=== PATIENT | male | born 1990 | race Caucasian/White ===

== ENCOUNTER → 2022-11-18 13:16 | Outpatient (CLI) | payer OTHER, SELFPAY ==
--- NOTE | 2022-11-18 13:19 | DI.MRI.S_ITS ---
PROCEDURE: MR BRAIN (PITUITARY) WWO CON INDICATIONS: Hypopituitarism TECHNIQUE: Noncontrast sagittal and axial FLAIR, axial gradient echo, axial diffusion and ADC through the brain. Thin-slice sagittal and coronal T1 spin echo, coronal T2 fast spin echo through the pituitary. After the administration contrast, optional dynamic coronal T1 spin echo, thin-slice coronal and sagittal T1 spin echo images through the pituitary fossa; axial and coronal and sagittal T1 spin echo with fat saturation through the brain. COMPARISON: None. FINDINGS: Image quality: Excellent. Pituitary Gland: The pituitary gland demonstrates normal signal and bulk. On the postcontrast imaging, no masses or abnormally enhancing areas are seen. The pituitary stalk and infundibulum have an unremarkable appearance. A normal appearing pituitary bright spot is seen posteriorly on the precontrast sagittal T1-weighted images. The optic chiasm and the ventral forebrain have an unremarkable appearance. CSF Spaces: Ventricles are normal in size and shape. Basal cisterns are patent. No extra-axial fluid collections. Brain: No intracranial bleeds or mass effects. No abnormal intracranial enhancement. [place]-white matter interface is intact. Diffusion weighted images demonstrate no acute ischemic insults. Brainstem is normal. Normal intravascular flow voids are present. Skull and face: Calvarial marrow is normal in signal. Orbits appear normal. Sinuses: Sinuses and mastoids are clear. IMPRESSION: Normal pituitary, without masses or abnormal enhancement. No imaging explanation is found for this patient's presenting symptoms. Dictated by: Madi Melara M.D. on 11/18/2022 at 13:49 Approved by: Madi Melara M.D. on 11/18/2022 at 13:50
== END ==
PROVIDERS: Referring Provider Internal Medicine; Visit Provider Internal Medicine
DX: E23.0 Hypopituitarism (principal)
CPT/HCPCS: 70553

== ENCOUNTER → 2023-11-30 13:17 | Outpatient (CLI) | payer OTHER, SELFPAY | PROVIDERS: Family Provider Preventive Medicine Aerospace Medicine; PCP Preventive Medicine Aerospace Medicine; Referring Provider Preventive Medicine Aerospace Medicine; Visit Provider Preventive Medicine Aerospace Medicine | DX: R20.2 Paresthesia of skin (principal) | CPT/HCPCS: 95885; 95886; 95913 ==

== ENCOUNTER → 2023-12-14 12:37 | Outpatient (CLI) | payer OTHER, SELFPAY ==
--- NOTE | 2023-12-14 12:39 | DI.MRI.S_ITS ---
PROCEDURE: MR CERVICAL SPINE WO CON INDICATIONS: NUMBNESS AND EVIDENCE OF LESIONS AT C6/7 TECHNIQUE: Noncontrast sagittal T1 spin echo and proton density, sagittal STIR, foraminal oblique sagittal T2 fast spin echo, and axial gradient echo or T2 fast spin echo through the cervical spine. COMPARISON: None. FINDINGS: Image quality: Excellent. Alignment and Curvature: There is overall straightening of the normal cervical lordosis. No focal AP alignment abnormality is seen. Bone Marrow: Marrow demonstrates normal overall signal. Spinal Cord: In this patient with this given history, scrutiny is given to abnormal T2 hyperintense lesions. None can be seen, including at the C6-C7 level. Visualized spinal cord has normal size and signal. No cerebellar tonsillar herniation. Paraspinous Soft Tissues: No paravertebral masses. Prevertebral soft tissues are normal in thickness. C2-C3: Normal appearance. C3-C4: The disc height and disk signal are relatively well-preserved. A mild degree of generalized disc osteophyte complex is seen. There is a mild central disc osteophyte protrusion seen. Mild facet joint hypertrophy is seen. There is at least moderate left-sided and mild right-sided neural foraminal narrowing. No central canal narrowing is seen. C4-C5: Mild loss of disc height is seen. Loss of disc signal is seen. Mild to moderate disc osteophyte complex is seen, with a central/right disc osteophyte protrusion. Uncovertebral joint hypertrophy is seen at this level. Mild to moderate facet hypertrophy can be seen. There is moderate to severe bilateral neural foraminal narrowing, left worse than right. Moderate central canal narrowing is seen. There is associated mass effect upon the ventral spinal cord. C5-C6: The disc height is well-preserved. Loss of disc signal is seen at this level. Moderate disc osteophyte complex is seen, with a central/left disc osteophyte protrusion. Uncovertebral joint hypertrophy is seen at this level. There is moderate to severe bilateral neural foraminal narrowing seen. Moderate central canal narrowing is seen. There is associated mass effect upon the ventral spinal cord. C6-C7: Mild loss of disc height is seen. Loss of disc signal is seen. Moderate disc osteophyte complex is seen, with a central/left disc extrusion, with mild inferior migration of the disc material. There is at least moderate right-sided and moderate left-sided neural foraminal narrowing. Moderate central canal narrowing is seen. Minimal mass effect can be seen upon the ventral spinal cord. C7-T1: Normal appearance. IMPRESSION: Multiple levels of significant cervical spine degenerative change can be seen, including a central/right disc extrusion at the C6-C7 level. Moderate central canal narrowing can be seen at C4-C5, C5-C6, and C6-C7, with associated mass effect upon the ventral spinal cord. Dictated by: Madi Melara M.D. on 12/14/2023 at 16:27 Approved by: Madi Melara M.D. on 12/14/2023 at 16:33
== END ==
PROVIDERS: Family Provider Preventive Medicine Aerospace Medicine; PCP Preventive Medicine Aerospace Medicine; Referring Provider Preventive Medicine Aerospace Medicine; Visit Provider Preventive Medicine Aerospace Medicine
DX: M48.02 Spinal stenosis, cervical region (principal); M47.812 Spondylosis without myelopathy or radiculopathy, cervical region; M50.223 Other cervical disc displacement at C6-C7 level; R20.2 Paresthesia of skin
CPT/HCPCS: 72141

== ENCOUNTER 2024-07-01 17:36 | Emergency (ER) | payer OTHER, SELFPAY ==
[2024-07-01 17:42] VITALS: BP 167/87; PULSE 94; RESP 20; TEMP 36.4; O2SAT 97; BMI 36.8
--- NOTE | 2024-07-01 21:25 | ED_ITS ---
HPI - Extremity Problem General Chief complaint: Extremity Problem,Nontraumatic Stated complaint: Rt arm numb, pain from neck to elbow Time Seen by Provider: 07/01/24 21:02 Mode of arrival: Ambulatory History of Present Illness HPI Narrative: 33-year-old gentleman presents with right-sided neck shoulder arm forearm pain radiating down to the all the fingertips today that is been worse than usual seen previously in the remote past for similar symptoms for which she had an MRI done of the cervical spine back in December 30. MRI at that time showed multiple levels of significant cervical spine degenerative changes including central right disc extrusion at C6-C7. Also moderate central canal narrowing seen at C4-C5 C5-6 C6-C6 C7 associated with mass effect upon the ventral spinal cord. Patient denies headache dizziness chest pain shortness of breath trauma to the area. Nothing makes it better or worse. Other than what is stated 14 point review of system is negative. Related Data Previous Rx's Medication Instructions Recorded cyclobenzaprine 10 mg tablet 10 mg PO TID PRN muscle spasm #30 07/01/24 tabs gabapentin 300 mg capsule 300 mg PO TID PRN numbness #30 caps 07/01/24 prednisone 20 mg tablet 20 mg PO DAILY #5 tabs 07/01/24 Review of Systems Review of Systems ROS Unobtainable: All systems reviewed & are unremarkable except as noted in HPI and below Patient History Smoking Status: Never smoker Exam Narrative Exam Narrative: GENERAL: [33] year old patient appears stated age. Well-developed patient, in mild distress. HEAD: Atraumatic. Normocephalic. EYES: Pupils equal round and reactive. Extraocular motions intact. No scleral icterus. No injection or drainage. NECK: Trachea midline. Non tender EXTREMITIES: No edema or joint tenderness. BACK: Nontender without deformity or crepitance. No flank tenderness. NEURO: AOx3. Motor sensory intact GCS 15 moving all his extremities with no difficulty. Full range of motion of the right upper extremity in flexion extension abduction adduction at the shoulder joint. Right forearm supination pronation flexion extension intact. Right wrist flexion-extension side abduction adduction intact. Plus two radial pulse cap refill less than 2nd motor sensory intact SKIN: No rash or erythema of visible areas Initial Vital Signs Initial Vital Signs: Vital Signs Temperature 97.5 F L 07/01/24 17:42 Pulse Rate 94 H 07/01/24 17:42 Respiratory Rate 20 07/01/24 17:42 Blood Pressure 167/87 H 07/01/24 17:42 Pulse Oximetry 97 07/01/24 17:42 Oxygen Delivery Method Room Air 07/01/24 17:42 Course Vital Signs Vital signs: Vital Signs - 8 hr 07/01/24 17:42 Temperature 97.5 F L Pulse Rate 94 H Respiratory Rate 20 Blood Pressure 167/87 H Pulse Oximetry 97 Oxygen Delivery Method Room Air MDM - Extremity (Nontraumatic) Imaging Data Extremity x-ray #1: Radiologist's Impression: [address] [address] Magnetic Resonance Report Signed Patient: Kevyn Mandujano MR#: [id number] : 1990 Acct:[id number] Age/Sex: 33 / M Date of Service: 12/14/23 Loc: MRI Accession Number: [id number] Procedure: MR cervical spine wo con Ordering Provider: Elvira Patel D.O. PROCEDURE: MR CERVICAL SPINE WO CON INDICATIONS: NUMBNESS AND EVIDENCE OF LESIONS AT C6/7 TECHNIQUE: Noncontrast sagittal T1 spin echo and proton density, sagittal STIR, foraminal oblique sagittal T2 fast spin echo, and axial gradient echo or T2 fast spin echo through the cervical spine. COMPARISON: None. FINDINGS: Image quality: Excellent. Alignment and Curvature: There is overall straightening of the normal cervical lordosis. No focal AP alignment abnormality is seen. Bone Marrow: Marrow demonstrates normal overall signal. Spinal Cord: In this patient with this given history, scrutiny is given to abnormal T2 hyperintense lesions. None can be seen, including at the C6-C7 level. Visualized spinal cord has normal size and signal. No cerebellar tonsillar herniation. Paraspinous Soft Tissues: No paravertebral masses. Prevertebral soft tissues are normal in thickness. C2-C3: Normal appearance. C3-C4: The disc height and disk signal are relatively well-preserved. A mild degree of generalized disc osteophyte complex is seen. There is a mild central disc osteophyte protrusion seen. Mild facet joint hypertrophy is seen. There is at least moderate left-sided and mild right-sided neural foraminal narrowing. No central canal narrowing is seen. C4-C5: Mild loss of disc height is seen. Loss of disc signal is seen. Mild to moderate disc osteophyte complex is seen, with a central/right disc osteophyte protrusion. Uncovertebral joint hypertrophy is seen at this level. Mild to moderate facet hypertrophy can be seen. There is moderate to severe bilateral neural foraminal narrowing, left worse than right. Moderate central canal narrowing is seen. There is associated mass effect upon the ventral spinal cord. C5-C6: The disc height is well-preserved. Loss of disc signal is seen at this level. Moderate disc osteophyte complex is seen, with a central/left disc osteophyte protrusion. Uncovertebral joint hypertrophy is seen at this level. There is moderate to severe bilateral neural foraminal narrowing seen. Moderate central canal narrowing is seen. There is associated mass effect upon the ventral spinal cord. C6-C7: Mild loss of disc height is seen. Loss of disc signal is seen. Moderate disc osteophyte complex is seen, with a central/left disc extrusion, with mild inferior migration of the disc material. There is at least moderate right-sided and moderate left-sided neural foraminal narrowing. Moderate central canal narrowing is seen. Minimal mass effect can be seen upon the ventral spinal cord. C7-T1: Normal appearance. IMPRESSION: Multiple levels of significant cervical spine degenerative change can be seen, including a central/right disc extrusion at the C6-C7 level. Moderate central canal narrowing can be seen at C4-C5, C5-C6, and C6-C7, with associated mass effect upon the ventral spinal cord. Dictated by: Madi Melara M.D. on 12/14/2023 at 16:27 Approved by: Madi Melara M.D. on 12/14/2023 at 16:33 [facility] Narrative Medical decision making narrative: Vital signs nurse triage note medication list previous ER visits and MRI all reviewed. Patient given gabapentin prednisone and cyclobenzaprine here and will be discharged on the same. Patient is part of the [employer] [place] re-evaluation. Differential diagnosis includes cervical radiculopathy osteoarthritis disc disease. Discharge Plan Departure Patient Disposition: Home Clinical Impression: Cervical disc disorder with radiculopathy Instructions: DI for Cervical Radiculopathy Activity Restrictions/Additional Instructions: Return with new or worsening symptoms. Follow up with PCP in 1-2 weeks for re- evaluation. Take your medicines directed. Prescriptions: New gabapentin 300 mg capsule 300 mg PO TID PRN (Reason: numbness) Qty: 30 0RF cyclobenzaprine 10 mg tablet 10 mg PO TID PRN (Reason: muscle spasm) Qty: 30 0RF prednisone 20 mg tablet 20 mg PO DAILY Qty: 5 0RF Referrals: Elvira Patel DO [Primary Care Provider] - Stand Alone Forms: Patient Portal/API/Survey
[2024-07-01] MEDS: GABAPENTIN 300 MG CAPSULE PO (21:34)
[2024-07-01] MEDS: CYCLOBENZAPRINE 10 MG TABLET PO (21:34)
[2024-07-01] MEDS: predniSONE 20 MG TABLET 60 MG PO (21:34)
== END 2024-07-01 21:43 | disposition home or self-care (01) ==
PROVIDERS: Emergency Provider Family Medicine; Family Provider Preventive Medicine Aerospace Medicine; PCP Preventive Medicine Aerospace Medicine
DX: M54.12 Radiculopathy, cervical region (principal); R20.0 Anesthesia of skin

== ENCOUNTER 2024-07-01 23:27 | Emergency (ER) | payer OTHER, SELFPAY ==
[2024-07-01 23:57] VITALS: BP 167/107; PULSE 76; RESP 18; TEMP 36.7; O2SAT 95; BMI 33.5
--- NOTE | 2024-07-02 00:55 | ED.NECK ---
HPI - Neck Pain/Injury General Chief Complaint: Neck Pain/Injury Stated Complaint: medication given earlier not helping Time Seen by Provider: 07/02/24 00:19 Mode of arrival: Ambulatory History of Present Illness HPI Narrative: 33-year-old gentleman seen by me earlier tonight for right shoulder neck pain radiating down to right fingertips with numbness and tingling with a known history of cervical spine degenerative changes including central right disc extrusion at C6-7 along with moderate central canal narrowing at C4-C5 as well as C5-C6 and C6-C7 associated with mass effect upon the ventral spinal cord given gabapentin prednisone and Flexeril here returns tonight a few hours later with same symptoms and no pain relief. Other than what is stated 14 point review of system is negative. Related Data Previous Rx's Medication Instructions Recorded cyclobenzaprine 10 mg tablet 10 mg PO TID PRN muscle spasm #30 07/01/24 tabs gabapentin 300 mg capsule 300 mg PO TID PRN numbness #30 caps 07/01/24 prednisone 20 mg tablet 20 mg PO DAILY #5 tabs 07/01/24 hydrocodone 5 mg-acetaminophen 325 1 tab PO Q4-6H PRN pain #20 tabs 07/02/24 mg tablet Review of Systems Review of Systems ROS Unobtainable: All systems reviewed & are unremarkable except as noted in HPI and below Patient History Social History Smoking Status: Never smoker Smoking Status: Never smoker Exam Narrative Exam Narrative: GENERAL: [33] year old patient appears stated age. Well-developed patient, in mild distress. HEAD: Atraumatic. Normocephalic. EYES: Pupils equal round and reactive. Extraocular motions intact. No scleral icterus. No injection or drainage. EXTREMITIES: No edema or joint tenderness. BACK: Nontender without deformity or crepitance. No flank tenderness. NEURO: AOx3. GCS 15 nonfocal neuro exam SKIN: No rash or erythema of visible areas Initial Vital Signs Initial Vital Signs: Vital Signs Temperature 98.0 F 07/01/24 23:57 Pulse Rate 76 07/01/24 23:57 Respiratory Rate 18 07/01/24 23:57 Blood Pressure 167/107 H 07/01/24 23:57 Pulse Oximetry 95 07/01/24 23:57 Oxygen Delivery Method Room Air 07/01/24 23:57 Course Orders Ordered: ED Orders 07/02/24 01:00 CT cervical spine wo con Stat Discontinued Medications Hydrocodone Bitart/Acetaminophen (Hydrocodone/Acet 5/325 Tablet) 1 tab PO NOW ONE Stop: 07/02/24 01:01 Last Admin: 07/02/24 01:05 Dose: 1 tab Documented By: JOSE Vital Signs Vital signs: Vital Signs - 8 hr 07/01/24 23:57 Temperature 98.0 F Pulse Rate 76 Respiratory Rate 18 Blood Pressure 167/107 H Pulse Oximetry 95 Oxygen Delivery Method Room Air MDM - Neck Pain/Injury Imaging Data CT - cervical spine: Radiologist's Impression: [place] [address] CT Scan Report Signed Patient: Kevyn Mandujano MR#: [id number] : 1990 Acct:[id number] Age/Sex: 33 / M Date of Service: 07/02/24 Loc: ED Accession Number: [id number] Procedure: CT cervical spine wo con Ordering Provider: Leoncio Rowe D.O. PROCEDURE: CT CERVICAL SPINE WO CON INDICATIONS: Neck pain radiating to R arm TECHNIQUE: Noncontrast 3 mm thick sections acquired from the skull base to the T4 level. Sagittal and coronal reformats were then constructed. For radiation dose reduction, the following was used: automated exposure control, adjustment of mA and/or kV according to patient size. COMPARISON: None. FINDINGS: Image quality: Excellent. Bones: No fractures or dislocations. Visualized superior ribs are intact. Mild disc height loss at C4-5, C5-6 and C6-7. There is a disc osteophyte complex at C5-6, causing mild bilateral neural foraminal narrowing. There is mild left-sided neural foraminal narrowing as well from uncovertebral hypertrophy. Soft tissues: Prevertebral soft tissues are normal in thickness. No paravertebral hematomas. No apical pneumothoraces. IMPRESSION: Mild bilateral neural foraminal narrowing at C5-6, due to disc osteophyte complex. Mild left neural foraminal narrowing at C4-5 due to uncovertebral hypertrophy. MDM Narrative Medical decision making narrative: Nurse triage note ,medication list, vital signs, previous ER visits, and all imaging studies reviewed Patient given [place] here and CT scan the cervical spine reviewed showing mild bilateral neural foraminal narrowing at C5-C6 due to osteophyte complex and mild left neural foraminal narrowing at C4-C5 due to on Co vertebral hypertrophy. DC home on [place] and follow up with PCP. Differential diagnosis includes cervical radiculopathy spinal stenosis osteoarthritis. 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 Take medicines as needed for breakthrough pain. Follow up with primary care doctor regarding CT scan and MRI finding. Prescriptions: New hydrocodone-acetaminophen 5-325 mg tablet 1 tab PO Q4-6H PRN (Reason: pain) Qty: 20 0RF No Action gabapentin 300 mg capsule 300 mg PO TID PRN (Reason: numbness) Qty: 30 0RF cyclobenzaprine 10 mg tablet 10 mg PO TID PRN (Reason: muscle spasm) Qty: 30 0RF prednisone 20 mg tablet 20 mg PO DAILY Qty: 5 0RF Referrals: Elvira Patel DO [Primary Care Provider] - Stand Alone Forms: Patient Portal/API/Survey
--- NOTE | 2024-07-02 01:00 | DI.CT.S_ITS ---
PROCEDURE: CT CERVICAL SPINE WO CON INDICATIONS: Neck pain radiating to R arm TECHNIQUE: Noncontrast 3 mm thick sections acquired from the skull base to the T4 level. Sagittal and coronal reformats were then constructed. For radiation dose reduction, the following was used: automated exposure control, adjustment of mA and/or kV according to patient size. COMPARISON: None. FINDINGS: Image quality: Excellent. Bones: No fractures or dislocations. Visualized superior ribs are intact. Mild disc height loss at C4-5, C5-6 and C6-7. There is a disc osteophyte complex at C5-6, causing mild bilateral neural foraminal narrowing. There is mild left-sided neural foraminal narrowing as well from uncovertebral hypertrophy. Soft tissues: Prevertebral soft tissues are normal in thickness. No paravertebral hematomas. No apical pneumothoraces. IMPRESSION: Mild bilateral neural foraminal narrowing at C5-6, due to disc osteophyte complex. Mild left neural foraminal narrowing at C4-5 due to uncovertebral hypertrophy. Dictated by: Anish Cook M.D. on 07/02/2024 at 1:23 Approved by: Anish Cook M.D. on 07/02/2024 at 1:24
[2024-07-02] MEDS: HYDROCODONE/ACET 5/325 TABLET 1 TAB PO (01:05)
[2024-07-02 01:48] VITALS: BP 167/102; PULSE 78; RESP 17; O2SAT 100
== END 2024-07-02 01:50 | disposition home or self-care (01) ==
PROVIDERS: Emergency Provider Family Medicine; Family Provider Preventive Medicine Aerospace Medicine; PCP Preventive Medicine Aerospace Medicine
DX: M50.00 Cervical disc disorder with myelopathy, unspecified cervical region (principal); M54.12 Radiculopathy, cervical region; R20.0 Anesthesia of skin
CPT/HCPCS: 72125; 99283; 99284

== ENCOUNTER → 2024-07-10 13:34 | Outpatient (CLI) | payer OTHER, SELFPAY ==
--- NOTE | 2024-07-10 | DI.MRI.S_ITS ---
PROCEDURE: MR CERVICAL SPINE WO CON INDICATIONS: Cervical spondylosis TECHNIQUE: Noncontrast sagittal T1 spin echo and T2 fast spin echo, sagittal STIR, foraminal oblique sagittal T2 fast spin echo, and axial gradient echo or T2 fast spin echo through the cervical spine. COMPARISON: [facility], MR, MR CERVICAL SPINE WO CON, 12/14/2023, 13:04. FINDINGS: Alignment and Curvature: There is normal bony alignment. Bone Marrow: Marrow demonstrates normal overall signal. Spinal Cord: Visualized spinal cord has normal size and signal. No cerebellar tonsillar herniation. Paraspinous Soft Tissues: No paravertebral masses. Prevertebral soft tissues are normal in thickness. C2-C3: Normal appearance. C3-C4: Normal appearance. C4-C5: Large central disc protrusion appears to have increased in size from the prior exam now results in moderate central stenosis and indentation of ventral cord. No cord edema. Arthropathy. Severe left and mild right foraminal stenosis C5-C6: Asymmetric left disc osteophyte complex is similar prior exam resulting in [id number] central stenosis. Arthropathy. Severe left and mild right foraminal stenosis C6-C7: Asymmetric right disc osteophyte complex is similar to the prior exam [id number] central stenosis. No foraminal stenosis C7-T1: No central or foraminal stenosis IMPRESSION: Multilevel degenerative disc disease and arthropathy results in varying degrees of central and foraminal stenosis including large central disc protrusion at C4-5 resulting in moderate central stenosis and indentation of the ventral cord, increased the prior Approved by: Jules Wu M.D. on 07/10/2024 at 14:28
== END ==
PROVIDERS: Family Provider Preventive Medicine Aerospace Medicine; PCP Preventive Medicine Aerospace Medicine; Referring Provider Neurological Surgery; Visit Provider Neurological Surgery
DX: M47.22 Other spondylosis with radiculopathy, cervical region (principal); M50.121 Cervical disc disorder at C4-C5 level with radiculopathy; M48.02 Spinal stenosis, cervical region
CPT/HCPCS: 72141